=== PATIENT | male | born 1945 | race Caucasian/White ===

== ENCOUNTER 2018-04-20 09:20 | Outpatient (RCR) | payer MEDICARE, BC, SELFPAY ==
[2018-04-20] MEDS: Normal Saline Flush 10 ML SYR IVP (11:30)
[2018-04-20 11:46] LABS: Absolute Basophil Count 0.01 k/cumm (0.0-0.2); Absolute Eosinophil Count 0.07 k/cumm (0.0-0.7); Absolute Lymphocyte Count 1.23 k/cumm (1.2-3.4); Absolute Monocyte Count 0.37 k/cumm (0.11-0.7); Absolute Neutrophil Count 3.89 k/cumm (1.2-6.7); Basophils % 0.2; Eosinophils % 1.3; HCT 34.7 % (40.0-50.0); HGB 11.6 g/dL (13.5-17.5); Lymphocytes % 22.1; Mean Corp. HGB Concentration 33.4 g/dL (32.0-36.0); Mean Corpuscular Volume 95.6 fL (80-95); Mean Platelet Volume 8.8 fL (8.0-11.0); Monocytes % 6.6; Neutrophils % 69.8; Platelet Count 146 x1000/uL (130-400); RBC 3.63 m/cumm (4.50-6.00); White Blood Cell Count 5.57 k/cumm (4.4-10.8)
[2018-04-20 11:57] LABS: Anisocytosis 1+
[2018-04-20 11:59] LABS: ALT 18 U/L (12-78); AST 13 U/L (15-37); Albumin 3.3 g/dL (3.4-5.0); Alkaline Phosphatase 128 U/L (46-116); Anion Gap 6.9 mmol/L (3-11); BUN 13 mg/dL (7-18); Bilirubin, Total 0.4 mg/dL (0.2-1.0); CO2 29.1 mmol/L (21.0-32.0); CREATININE 0.98 mg/dL (0.70-1.30); Calcium 8.9 mg/dL (8.5-10.1); Chloride 106 mmol/L (98-107); Glucose 108 mg/dL (70-100); Potassium 4.1 mmol/L (3.5-5.1); Sodium 142 mmol/L (136-145); Total Protein 7.2 g/dL (6.4-8.2)
[2018-04-23 10:45] LABS: CA 19-9 60 U/mL (<35)
== END 2018-04-27 ==
LOC: INF 09:20
PROVIDERS: PCP Neuromusculoskeletal Medicine & OMM; Visit Provider Internal Medicine Hematology & Oncology
DX: C24.1 Malignant neoplasm of ampulla of Vater (principal); Z45.2 Encounter for adjustment and management of vascular access device
CPT/HCPCS: 36591; 80053; 85025; 86301

== ENCOUNTER 2018-05-25 12:14 | Outpatient (REF) | payer MEDICARE, BC, SELFPAY ==
[2018-05-25 12:28] LABS: Abs Immature Grans 0.01 k/cumm (0.0-0.09); Absolute Basophil Count 0.01 k/cumm (0.0-0.2); Absolute Eosinophil Count 0.17 k/cumm (0.0-0.7); Absolute Lymphocyte Count 1.05 k/cumm (1.2-3.4); Absolute Monocyte Count 0.57 k/cumm (0.11-0.7); Absolute Neutrophil Count 5.05 k/cumm (1.2-6.7); Basophils % 0.1; Eosinophils % 2.5; HCT 39.1 % (40.0-50.0); Immature Grans % 0.1; Lymphocytes % 15.3; Mean Corp. HGB Concentration 33.2 g/dL (32.0-36.0); Mean Corpuscular Volume 99.2 fL (80-95); Mean Platelet Volume 9.5 fL (8.0-11.0); Monocytes % 8.3; Neutrophils % 73.7; Platelet Count 178 x1000/uL (130-400); RBC 3.94 m/cumm (4.50-6.00); RBC Distribution Width 15.1 % (11.8-14.1); White Blood Cell Count 6.86 k/cumm (4.4-10.8)
[2018-05-25 12:37] LABS: ALT 16 U/L (12-78); AST 12 U/L (15-37); Albumin 3.4 g/dL (3.4-5.0); Alkaline Phosphatase 146 U/L (46-116); Anion Gap 9.2 mmol/L (3-11); BUN 13 mg/dL (7-18); Bilirubin, Total 0.4 mg/dL (0.2-1.0); CO2 29.8 mmol/L (21.0-32.0); CREATININE 0.96 mg/dL (0.70-1.30); Chloride 101 mmol/L (98-107); Glucose 176 mg/dL (70-100); Potassium 4.1 mmol/L (3.5-5.1); Sodium 140 mmol/L (136-145); Total Protein 7.4 g/dL (6.4-8.2)
[2018-05-28 11:56] LABS: CA 19-9 79 U/mL (<35)
== END 2018-05-25 12:34 ==
LOC: LBN 12:14
PROVIDERS: PCP Neuromusculoskeletal Medicine & OMM; Visit Provider Internal Medicine Hematology & Oncology
DX: C24.1 Malignant neoplasm of ampulla of Vater (principal)
CPT/HCPCS: 80053; 85025; 86301

== ENCOUNTER 2018-06-01 13:22 | Emergency (ER) | payer MEDICARE, BC, SELFPAY ==
[2018-06-01 13:17] VITALS: BP 117/83; PULSE 84; RESP 20; TEMP 36.2; O2SAT 99
--- NOTE | 2018-06-01 13:28 | DI.CT_ITS ---
SYMPTOMS/DIAGNOSIS: FALL, ON ELIQUIS, HEAD LAC CT BRAIN: Noncontrast. No priors. There is cerebral atrophy and small vessel ischemic disease consistent with the patient's age. 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 No intracranial hemorrhage, infarct, midline shift or mass effect is identified. The calvarium is intact. The visualized paranasal sinuses are clear. IMPRESSION: No acute intracranial process. CT SCAN OF THE CERVICAL SPINE: Multiple contiguous axial images of the cervical spine were obtained. Sagittal and coronal reformatted images were evaluated on the [employer] workstation. There is normal alignment of the cervical spine. No acute fractures or subluxations are present. Moderate degenerative changes are present throughout the cervical spine. The odontoid is intact. The lateral masses are well aligned. The prevertebral soft tissues are unremarkable. The visualized lung apices are clear. IMPRESSION: No acute fractures or subluxations of the cervical spine. The findings were discussed with the emergency department on the date of the examination.
--- NOTE | 2018-06-01 14:43 | W.ED.GENAD ---
Discharge Plan Disposition Patient Disposition: HOME Condition: Good Discharge Details Chief Complaint: Trauma Clinical Impression: Weakness, Fall Reason For Visit: ZONIA Primary Care Provider: Wesley Monroe ED Provider: Lee Avilez Home Meds and New Rx's Prescriptions: No Action pravastatin 40 mg Tablet 40 mg PO DAILY RF: 0 docusate sodium [Stool Softener] 50 mg Capsule 50 mg PO DAILY PRNRF: 0 fexofenadine 180 mg Tablet 180 mg PO DAILY RF: 0 capecitabine 500 mg Tablet 1,500 mg PO BID RF: 0 omeprazole 40 mg Capsule,Delayed Release(Dr/Ec) 40 mg PO DAILY RF: 0 ondansetron 8 mg Tablet,Disintegrating 8 mg PO PRN PRNRF: 0 levothyroxine 100 mcg Tablet 100 mcg PO DAILY RF: 0 pantoprazole 40 mg Tablet,Delayed Release (Dr/Ec) 40 mg PO DAILY RF: 0 trazodone 300 mg Tablet 300 mg PO HS RF: 0 zolpidem 5 mg Tablet 0.25 mg PO HS PRNRF: 0 ibuprofen 600 mg Tablet 600 mg PO TID PRNRF: 0 metoprolol tartrate 25 mg Tablet 25 mg PO DAILY AM RF: 0 venlafaxine 225 mg Tablet Extended Release 24hr 225 mg PO DAILY RF: 0 [id number] [Creon] 3,000-9,500- 15,000 unit Capsule,Delayed Release(Dr/Ec) PRNRF: 0 apixaban [Eliquis] 5 mg Tablet 5 mg PO BID RF: 0 Discharge Instructions Instructions: Weakness (ED) Additional Instructions: Please go directly to your oncologist office. If you notice any worsening of your symptoms, or any new symptoms such as vomiting, diarrhea, fever, chills, shortness of breath, chest pain, numbness, weakness, or fainting , please return immediately to the emergency department for reevaluation. Please follow up with your primary care provider as soon as possible for reassessment and reevaluation. As always, it was a pleasure participating in your medical care today. Discharge Data Discharge Date/Time-TO BE ENTERED AT DEPARTURE: 06/01/18 15:38 Medical Decision Making This is a pleasant 72-year-old male with a history of cancer who was on his way to see his oncologist when his legs went out and he fell and hit the back of his head. He denies any loss of consciousness, he recalls the entire event. He denies any chest pain shortness of breath or palpitations. Physical exam demonstrates no abnormalities he has good strength of his lower extremities and is able to walk and move without difficulty or signs of weakness. He did demonstrate a small abrasion on his posterior occiput but no other significant abnormalities. Because of his Eliquis use CT scan of the head and neck were ordered. No abnormalities are noted. No acute bleed or signs of fracture. The patient's tetanus is up-to-date and has been given within the last 10 per the patient and his . The patient's occiput was cleaned with hydrogen peroxide, no laceration is noted. Mild abrasion is noted. No signs or need for wound repair with sutures. Patient's laboratory workup has returned negative, troponin, EKG, and labs are within normal limits. Patient is requesting to be discharged so he can go to his follow-up appointment today with his oncologist. Patient will be discharged home with close follow-up with his oncologist in the next 45 minutes. We discussed red flags for which to return the patient understands. I have extensively reviewed the treatment plan and discharge instructions with the patient and their family. I have addressed all patient concerns at this time. The patient and family was made aware of what symptoms to monitor for that would warrant a return to the emergency department. Discussed the plan with the patient and family, they demonstrate verbal understanding and agreement with our assessment and plan at this time. IMPRESSION: No acute fractures or subluxations of the cervical spine. No acute intracranial abnormalities 14: 39 Rate 78, MS 232, QTc 474, sinus rhythm with a first-degree AV block, PVCs are present, no significant ST elevations or depressions, 1 mm Q wave in lead III. No other significant abnormalities HPI General Date/Time Provider Initiated Documentation: 06/01/18 13:27. 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 Family states that patient was going into see his oncologist, when he got out of the car he felt that his legs just gave out and strength. He fell to the ground and did hit his head. He at the posterior aspect of his head. He had no loss of consciousness and recalls the entire event. He was able to get up with some assistance. He was able to walk after this with some assistance. He was brought to the ER for further evaluation. Currently the patient denies any complaints. He denies any weakness numbness tingling chest pain shortness of breath headache vision changes nausea vomiting or diarrhea. He states that he feels completely fine now. He denies any other complaints at this time. He denies any aggravating or modifying factors. Related Data Home Medications Medication Instructions Recorded Confirmed apixaban [Eliquis] 5 mg PO BID 06/01/18 06/01/18 capecitabine 1,500 mg PO BID 06/01/18 06/01/18 docusate sodium [Stool Softener] 50 mg PO DAILY PRN 06/01/18 06/01/18 fexofenadine 180 mg PO DAILY 06/01/18 06/01/18 ibuprofen 600 mg PO TID PRN 06/01/18 06/01/18 levothyroxine 100 mcg PO DAILY 06/01/18 06/01/18 [id number] [Creon] PRN 06/01/18 metoprolol tartrate 25 mg PO DAILY AM 06/01/18 06/01/18 omeprazole 40 mg PO DAILY 06/01/18 06/01/18 ondansetron 8 mg PO PRN PRN 06/01/18 06/01/18 pantoprazole 40 mg PO DAILY 06/01/18 06/01/18 pravastatin 40 mg PO DAILY 06/01/18 06/01/18 trazodone 300 mg PO HS 06/01/18 06/01/18 venlafaxine 225 mg PO DAILY 06/01/18 06/01/18 zolpidem 0.25 mg PO HS PRN 06/01/18 06/01/18 Allergies Allergy/AdvReac Type Severity Reaction Status Date / Time acetaminophen [From Percocet] AdvReac Agitation Unverified 06/01/18 13:19 oxycodone [From Percocet] AdvReac Agitation Unverified 06/01/18 13:19 General Stated Complaint: Trauma EVELYN: 2 Review of Systems Review of Systems All systems reviewed & are unremarkable except as noted in HPI and below PFSH Social History Smoking/Tobacco Use Status: Former Tobacco Use Exam Narrative Exam Narrative: 1.Const: Well-nourished, Well-developed, appearing stated age 2.Eyes: PERRL, no conjunctival injection, and symmetrical lids. 3.ENT: Atraumatic external nose and ears. Moist MM. Neck: Symmetric, trachea midline, No thyromegaly. There is no evidence of raccoon eyes, matamoros sign, CSF rhinorrhea, mastoid tenderness, cranial crepitus, hemotympanum, exophthalmos, or hyphema. Patient demonstrates intact dentition with no signs of tooth avulsion or fracture, no signs of jaw deformity, no evidence of a LeFort's fracture, with an intact palate, nose and orbital region. There is no evidence of a nasal septal hematoma. No proptosis. Jaw closes symmetrically. Airway is clear. 4.CVS: +S1/S2, No murmurs or gallops. Peripheral pulses 2+ and equal in all extremities. Brisk capillary refill in all extremities. 5.RESP: Unlabored respiratory effort. Clear to auscultation bilaterally. No wheezes rales or rhonchi 6.GI: Soft, Nontender/Nondistended, No hepatosplenomegaly. No guarding or rebound. 7.MSK: Normocephalic/Atraumatic, Extremities w/o deformity or ttp No cyanosis or clubbing, Normal movement of all extremities no midline tenderness to palpation over the CTLS spine. Normal ROM in flexion, extension, side bend, and rotation. Patient has +5 out of 5 strength in the lower extremities in dorsiflexion and plantarflexion, knee flexion and extension, hip flexion and extension. There is +2 over 2 dorsalis pedis pulses bilaterally. There is normal sensation to the skin with light touch at the foot, knee, and hip. Normal saddle sensation. Good sensation over the deep sural nerve area bilaterally. Rectal exam deferred. Reflexes are +2 over 4 in the patellar reflex bilaterally. +5 out of 5 strength in the medial, ulnar, radial nerve distribution bilaterally in the hands as well as intact light touch sensation to these dermatomes on the hands 8.Skin: Warm, Dry. No rashes or lesions. Small abrasion noted over the posterior occiput. No significant laceration, mild skin abrasion is noted. 9.Neuro: toilet products molder II-XII grossly intact. Sensation grossly intact, no focal neurologic deficits. Normal movements of all extremities. No dysdiadochokinesia or dysmetria. Normal [id number]. Normal sensation throughout. 5 out of 5 muscle strength for the upper and lower extremities. +2 patellar reflexes bilaterally. 10.Psych: (AAO) x3. Appropriate mood and affect Course Vital Signs Temperature 36.2 C L 06/01/18 13:17 Pulse 84 06/01/18 13:17 Respiratory Rate 20 06/01/18 13:17 Blood Pressure 117/83 06/01/18 13:17 Pulse Oximetry 99 06/01/18 13:17 Temperature 36.2 C L 06/01/18 13:17 Temperature Source Skin 06/01/18 13:17 Pulse 84 06/01/18 13:17 Respiratory Rate 20 06/01/18 13:17 Respiratory Effort Non-Labored 06/01/18 13:20 Blood Pressure 117/83 06/01/18 13:17 Blood Pressure Position Supine 06/01/18 13:17 Pulse Oximetry 99 06/01/18 13:17 Oxygen Delivery Method Room Air 06/01/18 13:17 Oxygen Flow Rate 0 06/01/18 13:17 Pain Level 4 06/01/18 13:17
[2018-06-01 15:04] LABS: Abs Immature Grans 0.02 k/cumm (0.0-0.09); Absolute Basophil Count 0.01 k/cumm (0.0-0.2); Absolute Eosinophil Count 0.03 k/cumm (0.0-0.7); Absolute Lymphocyte Count 0.81 k/cumm (1.2-3.4); Absolute Monocyte Count 0.42 k/cumm (0.11-0.7); Absolute Neutrophil Count 3.16 k/cumm (1.2-6.7); Basophils % 0.2; Eosinophils % 0.7; HCT 40.6 % (40.0-50.0); HGB 13.7 g/dL (13.5-17.5); Immature Grans % 0.4; Lymphocytes % 18.2; Mean Corp. HGB Concentration 33.7 g/dL (32.0-36.0); Mean Corpuscular Hemoglobin 32.8 pg (27.0-33.0); Mean Corpuscular Volume 97.1 fL (80-95); Mean Platelet Volume 8.9 fL (8.0-11.0); Monocytes % 9.4; Neutrophils % 71.1; Platelet Count 175 x1000/uL (130-400); RBC 4.18 m/cumm (4.50-6.00); RBC Distribution Width 13.9 % (11.8-14.1); White Blood Cell Count 4.45 k/cumm (4.4-10.8)
[2018-06-01 15:19] LABS: INR 1.1 (1.0-3.5); PTT Activated 23.2 sec (21.0-31.4); Prothrombin Time 10.6 sec (9.3-10.8)
[2018-06-01 15:23] LABS: ALT 24 U/L (12-78); AST 19 U/L (15-37); Alkaline Phosphatase 162 U/L (46-116); Anion Gap 8.6 mmol/L (3-11); BUN 16 mg/dL (7-18); Bilirubin, Total 0.6 mg/dL (0.2-1.0); CO2 31.4 mmol/L (21.0-32.0); CREATININE 1.31 mg/dL (0.70-1.30); Calcium 9.9 mg/dL (8.5-10.1); Chloride 94 mmol/L (98-107); Estimated GFR 53.49 (mL/min/1.73m2); Glucose 151 mg/dL (70-100); Potassium 4.4 mmol/L (3.5-5.1); Sodium 134 mmol/L (136-145); Total Protein 8.7 g/dL (6.4-8.2); Troponin I < 0.02 ng/mL (0.00-0.06)
[2018-06-01 15:38] VITALS: BP 117/83; PULSE 84; RESP 20; TEMP 36.2; O2SAT 99
== END 2018-06-01 15:38 | disposition home or self-care (01) ==
PROVIDERS: Emergency Provider Student in an Organized Health Care Education/Training Program; PCP Neuromusculoskeletal Medicine & OMM
DX: S00.01XA Abrasion of scalp, initial encounter (principal); W18.39XA Other fall on same level, initial encounter; Z79.01 Long term (current) use of anticoagulants; E11.9 Type 2 diabetes mellitus without complications; Z79.4 Long term (current) use of insulin
CPT/HCPCS: 36415; 80053; 90471; 93005; 99285; 70450; 72125; 84484; 85025; 85610; 85730; 93010

== ENCOUNTER 2018-08-17 01:31 | Outpatient (RCR) | payer MEDICARE, BC, SELFPAY ==
[2018-08-06] MEDS: Normal Saline Flush 10 ML SYR IVP (09:55)
[2018-08-06 10:07] LABS: Absolute Basophil Count 0.01 k/cumm (0.0-0.2); Absolute Eosinophil Count 0.28 k/cumm (0.0-0.7); Absolute Lymphocyte Count 0.16 k/cumm (1.2-3.4); Absolute Monocyte Count 0.34 k/cumm (0.11-0.7); Absolute Neutrophil Count 3.38 k/cumm (1.2-6.7); Basophils % 0.2; Eosinophils % 6.7; HGB 11.1 g/dL (13.5-17.5); Lymphocytes % 3.8; Mean Corp. HGB Concentration 33.6 g/dL (32.0-36.0); Mean Corpuscular Hemoglobin 32.4 pg (27.0-33.0); Mean Corpuscular Volume 96.2 fL (80-95); Monocytes % 8.2; Neutrophils % 81.1; RBC 3.43 m/cumm (4.50-6.00); RBC Distribution Width 15.1 % (11.8-14.1); White Blood Cell Count 4.17 k/cumm (4.4-10.8)
[2018-08-06 10:19] LABS: Anisocytosis 1+; Diff Comment PLT Morph Reviewed; Platelet Count 84 x1000/uL (130-400); Polychromasia Present
[2018-08-06 10:30] LABS: ALT 13 U/L (12-78); AST 14 U/L (15-37); Albumin 2.8 g/dL (3.4-5.0); Alkaline Phosphatase 130 U/L (46-116); Anion Gap 8.5 mmol/L (3-11); BUN 12 mg/dL (7-18); Bilirubin, Total 0.5 mg/dL (0.2-1.0); CO2 29.5 mmol/L (21.0-32.0); CREATININE 0.76 mg/dL (0.70-1.30); Calcium 8.9 mg/dL (8.5-10.1); Chloride 98 mmol/L (98-107); Glucose 198 mg/dL (70-100); Sodium 136 mmol/L (136-145); Total Protein 6.6 g/dL (6.4-8.2)
[2018-08-08] MEDS: Normal Saline Flush 10 ML SYR IVP (09:42)
[2018-08-08 10:09] LABS: Abs Immature Grans 0.01 k/cumm (0.0-0.09); Absolute Eosinophil Count 0.19 k/cumm (0.0-0.7); Absolute Lymphocyte Count 0.11 k/cumm (1.2-3.4); Absolute Monocyte Count 0.29 k/cumm (0.11-0.7); Absolute Neutrophil Count 2.82 k/cumm (1.2-6.7); Eosinophils % 5.6; HCT 32.3 % (40.0-50.0); HGB 10.6 g/dL (13.5-17.5); Immature Grans % 0.3; Lymphocytes % 3.2; Mean Corp. HGB Concentration 32.8 g/dL (32.0-36.0); Mean Corpuscular Hemoglobin 31.5 pg (27.0-33.0); Mean Corpuscular Volume 96.1 fL (80-95); Mean Platelet Volume 10.7 fL (8.0-11.0); Monocytes % 8.5; Neutrophils % 82.4; RBC 3.36 m/cumm (4.50-6.00); RBC Distribution Width 15.6 % (11.8-14.1); White Blood Cell Count 3.42 k/cumm (4.4-10.8)
[2018-08-08 10:28] LABS: Diff Comment Diff Reviewed; Platelet Count 70 x1000/uL (130-400)
[2018-08-08 10:29] LABS: Polychromasia Present
[2018-08-08 10:30] LABS: Poikilocytes 2+
[2018-08-10] MEDS: Normal Saline Flush 10 ML SYR IVP (09:30)
[2018-08-10 10:05] LABS: Abs Immature Grans 0.01 k/cumm (0.0-0.09); Absolute Eosinophil Count 0.14 k/cumm (0.0-0.7); Absolute Lymphocyte Count 0.07 k/cumm (1.2-3.4); Absolute Monocyte Count 0.32 k/cumm (0.11-0.7); Absolute Neutrophil Count 2.49 k/cumm (1.2-6.7); Eosinophils % 4.6; HGB 10.7 g/dL (13.5-17.5); Immature Grans % 0.3; Lymphocytes % 2.3; Mean Corp. HGB Concentration 33.4 g/dL (32.0-36.0); Mean Corpuscular Hemoglobin 32.4 pg (27.0-33.0); Mean Platelet Volume 10.3 fL (8.0-11.0); Monocytes % 10.6; Neutrophils % 82.2; RBC Distribution Width 15.8 % (11.8-14.1); White Blood Cell Count 3.03 k/cumm (4.4-10.8)
[2018-08-10 10:17] LABS: Diff Comment PLT Morph Reviewed; Platelet Count 64 x1000/uL (130-400)
[2018-08-10 10:18] LABS: Basophilic Stippling Present; Poikilocytes 1+; Polychromasia Present
[2018-08-10 10:24] LABS: ALT 14 U/L (12-78); AST 16 U/L (15-37); Albumin 2.8 g/dL (3.4-5.0); Alkaline Phosphatase 135 U/L (46-116); Anion Gap 6.1 mmol/L (3-11); BUN 11 mg/dL (7-18); Bilirubin, Total 0.6 mg/dL (0.2-1.0); CO2 31.9 mmol/L (21.0-32.0); CREATININE 0.74 mg/dL (0.70-1.30); Calcium 8.9 mg/dL (8.5-10.1); Chloride 100 mmol/L (98-107); Glucose 208 mg/dL (70-100); Sodium 138 mmol/L (136-145); Total Protein 6.7 g/dL (6.4-8.2)
[2018-08-17] MEDS: Normal Saline Flush 10 ML SYR IVP (12:11)
[2018-08-17 12:26] LABS: Absolute Basophil Count 0.01 k/cumm (0.0-0.2); Absolute Eosinophil Count 0.07 k/cumm (0.0-0.7); Absolute Lymphocyte Count 0.15 k/cumm (1.2-3.4); Absolute Monocyte Count 0.26 k/cumm (0.11-0.7); Absolute Neutrophil Count 2.99 k/cumm (1.2-6.7); Basophils % 0.3; HCT 30.8 % (40.0-50.0); HGB 10.3 g/dL (13.5-17.5); Lymphocytes % 4.3; Mean Corp. HGB Concentration 33.4 g/dL (32.0-36.0); Mean Corpuscular Hemoglobin 32.5 pg (27.0-33.0); Mean Corpuscular Volume 97.2 fL (80-95); Mean Platelet Volume 10.5 fL (8.0-11.0); Monocytes % 7.5; Neutrophils % 85.9; RBC 3.17 m/cumm (4.50-6.00); White Blood Cell Count 3.48 k/cumm (4.4-10.8)
[2018-08-17 12:37] LABS: ALT 13 U/L (12-78); AST 14 U/L (15-37); Albumin 2.7 g/dL (3.4-5.0); Alkaline Phosphatase 137 U/L (46-116); Anion Gap 4.9 mmol/L (3-11); BUN 11 mg/dL (7-18); Bilirubin, Total 0.4 mg/dL (0.2-1.0); CO2 31.1 mmol/L (21.0-32.0); CREATININE 0.66 mg/dL (0.70-1.30); Chloride 99 mmol/L (98-107); Glucose 165 mg/dL (70-100); Potassium 4.4 mmol/L (3.5-5.1); Sodium 135 mmol/L (136-145); Total Protein 6.8 g/dL (6.4-8.2)
[2018-08-17 12:49] LABS: Diff Comment Diff Reviewed; Platelet Count 66 x1000/uL (130-400)
== END 2018-08-27 23:59 | disposition home or self-care (01) ==
LOC: INF 01:31
PROVIDERS: PCP Neuromusculoskeletal Medicine & OMM; Visit Provider Internal Medicine Hematology & Oncology
DX: C24.1 Malignant neoplasm of ampulla of Vater (principal); Z45.2 Encounter for adjustment and management of vascular access device
CPT/HCPCS: 36591; 80053; 85025

== ENCOUNTER 2018-08-30 02:20 | Outpatient (RCR) | payer MEDICARE, BC, SELFPAY ==
[2018-08-30] MEDS: Heparin 500 UNITS/5 ML SYRINGE IV (09:05)
[2018-08-30] MEDS: Normal Saline Flush 10 ML SYR IVP (09:05)
[2018-08-30 09:29] LABS: Abs Immature Grans 0.01 k/cumm (0.0-0.09); Absolute Basophil Count 0.01 k/cumm (0.0-0.2); Absolute Eosinophil Count 0.05 k/cumm (0.0-0.7); Absolute Lymphocyte Count 0.13 k/cumm (1.2-3.4); Absolute Monocyte Count 0.43 k/cumm (0.11-0.7); Absolute Neutrophil Count 4.01 k/cumm (1.2-6.7); Basophils % 0.2; Eosinophils % 1.1; HCT 29.8 % (40.0-50.0); HGB 9.7 g/dL (13.5-17.5); Immature Grans % 0.2; Lymphocytes % 2.8; Mean Corp. HGB Concentration 32.6 g/dL (32.0-36.0); Mean Corpuscular Hemoglobin 31.6 pg (27.0-33.0); Mean Corpuscular Volume 97.1 fL (80-95); Mean Platelet Volume 9.8 fL (8.0-11.0); Monocytes % 9.3; Neutrophils % 86.4; RBC 3.07 m/cumm (4.50-6.00); RBC Distribution Width 15.8 % (11.8-14.1); White Blood Cell Count 4.64 k/cumm (4.4-10.8)
[2018-08-30 09:41] LABS: ALT 11 U/L (12-78); AST 14 U/L (15-37); Albumin 2.5 g/dL (3.4-5.0); Alkaline Phosphatase 132 U/L (46-116); Anion Gap 6.8 mmol/L (3-11); BUN 12 mg/dL (7-18); Bilirubin, Total 0.5 mg/dL (0.2-1.0); CO2 31.2 mmol/L (21.0-32.0); CREATININE 0.96 mg/dL (0.70-1.30); Chloride 99 mmol/L (98-107); Glucose 169 mg/dL (70-100); Potassium 3.8 mmol/L (3.5-5.1); Sodium 137 mmol/L (136-145); Total Protein 6.6 g/dL (6.4-8.2)
[2018-08-30 09:54] LABS: Anisocytosis 1+; Diff Comment RBC Morph Reviewed; Platelet Count 77 x1000/uL (130-400)
[2018-08-30 09:55] LABS: Polychromasia Present
[2018-08-31 13:18] LABS: CA 19-9 167 U/mL (<35)
== END 2018-09-27 23:59 | disposition home or self-care (01) ==
LOC: INF 02:20
PROVIDERS: PCP Neuromusculoskeletal Medicine & OMM; Visit Provider Internal Medicine Hematology & Oncology
DX: C24.1 Malignant neoplasm of ampulla of Vater (principal)
CPT/HCPCS: 36591; 80053; 85025; 86301